=== PATIENT | female | born 1945 ===

== ENCOUNTER 2016-10-03 22:37 | Emergency (ER) | payer OTHER ==
--- NOTE | 2016-10-03 22:48 | PDOC ---
History of Present Illness - General Chief Complaint: Laceration Stated Complaint: S/P FALL HEAD LAC Time Seen by Provider: 10/03/16 22:47 History Source: Patient, Family Exam Limitations: No Limitations - History of Present Illness Initial Comments: 10/03/16 23:02 This is a 71-year-old female who has been fasting for . Patient before breaking her fast at the end of the day developed some dizziness and lost her balance hitting her head against a cabinet. Patient comes in with a laceration to her forehead. Patient said she did not pass out. Patient denies any chest pain, shortness of breath, headache, neck pain. Patient only complained of pain is in the area of the laceration. PAST MEDICAL HISTORY: no significant history PAST SURGICAL HISTORY: no significant history FAMILY HISTORY: no pertinant history SOCIAL HISTORY: Pt lives with family and is employed. MEDICATIONS: reviewed ALLERGIES: As per nursing notes Review of Systems General: No fevers or chills, no weakness, no weight loss HEENT: Forehead laceration, No change in vision. No sore throat,. No ear pain CardioVascular: No chest pain or shortness of breath Respiratory:No cough, or wheezing. Gastrointestinal: no nausea, vomitting, diarrhea or constipation, No rectal bleeding Genitourinary: No dysuria, hematuria, or frequency Musculoskeletal: No joint or muscle pain or swelling Neurologic: Dizziness, No headache, vertigo, no loss of consciousness Psychiatric: nor depression Skin: No rashes or easy bruising Endocrine: no increased thirst or abnormal weight change Allergic: no skin or latex allergy All other systems reviewed and normal Exam: General: Well-nourished well-developed individual, no acute distress HEAD: There is approximately 4 cm laceration mid forehead towards the upper forehead. There is no active bleeding laceration is superficial. HEENT: Throat: Normal, tonsils normal, no erythema or exudate Neck: Supple, no meningeal signs, no lymphadenopathy Eyes::Pupils equal reactive and round, extraocular motion intact Chest: Nontender to palpation Cardiac: S1-S2 normal, regular rate and rhythm, no murmurs rubs or gallops Respiratory: Lungs clear to auscultation bilateral Abdomen: Soft, nondistended, normal bowel sounds, nontender to palpation diffusely Extremities: Warm, dry, no cyanosis, clubbing, or edema Skin: No rashes Neuro: Alert and oriented x3, nonfocal exam, grossly intact, normal gait Psych: Normal mood and affect 10/03/16 23:18 Procedure note laceration repair Laceration was cleaned with peroxide and then closed with Dermabond patient tolerated well Past History - Past Medical History Allergies/Adverse Reactions: Allergies Allergy/AdvReac Type Severity Reaction Status Date / Time No Known Allergies Allergy Unverified 10/03/16 22:40 Home Medications: Ambulatory Orders Atorvastatin Ca [Lipitor] 10 mg PO HS 10/03/16 Levothyroxine Sodium [Synthroid] 88 mcg PO DAILY 10/03/16 ED Treatment Course - LABORATORY CBC & Chemistry Diagram: 10/03/16 22:49 10/03/16 22:49 *DC/Admit/Observation/Transfer Diagnosis at time of Disposition: Pre-syncope, Laceration of forehead - Discharge Dispostion Disposition: HOME Condition at time of disposition: Good Admit: No - Patient Instructions Printed Discharge Instructions: DI for Closed Head Injury, DI for Laceration Repair With Dermabond Additional Instructions: Tylenol or Motrin as needed for pain. Read over the Dermabond instructions were given. It is important that you do not put any petroleum based creams or ointments on the laceration is awoke THE glue to come off early. Also keep it dry for the next 48 hours and do not get a wet Someone should check on you once tonight during the night. You should be arousable to your Normal level of arousability for that time of the night. If you have been vomiting, have had a seizure, or you are unable to be aroused or the person checking on you is concerned that there has been a change in your mental status they should call 911 and have you brought back to the emergency department. You can take Tylenol as needed for pain. Return to the emergency department immediately with ANY new, persistent or worsening symptoms. Continue any medications as previously prescribed by your physician. You should follow up with your primary doctor as soon as possible regarding today's emergency department visit. . Please make sure your doctor reviews the results of your emergency evaluation. Thank you for coming to the Emergency Department today for your care. It was a pleasure to see you today. Please note that your evaluation is INCOMPLETE until you follow-up with your doctor.
[2016-10-03 22:49] VITALS: BP 151/76; PULSE 79; TEMP 97.7; BMI 42.9
[2016-10-03] MEDS ORDERED: ACETAMINOPHEN 500 MG TABLET (FP) PO ONE (23:03)
[2016-10-03] MEDS ORDERED: ACETAMINOPHEN 325 MG TABLET (FP) ONE (23:06)
[2016-10-03 23:20] LABS: BASOPHIL 3.1 % (0-2.0); EOSINOPHIL 2.3 % (0-4.5); MCH 29.7 pg (25.7-33.7); MCHC 33.3 g/dl (32.0-36.0); MEAN PLT VOLUME 7.9 fl (7.5-11.1); NEUTROPHILS 60.4 % (42.8-82.8); PLATELET COUNT 242 K/MM3 (134-434); RDW 11.9 % (11.6-15.6); WHITE BLOOD COUNT 8.2 K/mm3 (4.0-10.8)
[2016-10-03 23:38] LABS: ALBUMIN 3.9 g/dl (3.5-5.0); ALK PHOS 69 U/L (32-92); ANION GAP 8 (8-16); BILIRUBIN,TOTAL 0.4 mg/dl (0.2-1.0); CALCIUM 9.2 mg/dl (8.4-10.2); CO2 27 mmol/L (22-28); COCKROFT - GAULT 118.8045; CREATININE 0.8 mg/dl (0.6-1.3); GLUCOSE,RANDOM 182 mg/dl (74-106); SGOT/AST 21 U/L (10-42); SGPT/ALT 25 U/L (10-40); TOT PROT 6.9 g/dl (6.4-8.3)
[2016-10-03 23:39] LABS: CPK(DFH) 179 IU/L (26-140)
[2016-10-03 23:47] LABS: TROPONIN I (DFP) < 0.03 ng/ml (0.03-0.50)
--- NOTE | 2016-10-04 07:53 | EKG ---
Test Reason : Blood Pressure : / mmHG Vent. Rate : 070 BPM Atrial Rate : 070 BPM P-R Int : 098 ms QRS Dur : 080 ms QT Int : 392 ms P-R-T Axes : 000 014 007 degrees QTc Int : 423 ms SINUS RHYTHM WITH SHORT OR OTHERWISE NORMAL ECG NO PREVIOUS ECGS AVAILABLE Confirmed by CRYSTAL CARPIO MD ([id number] on 10/04/2016 7:53:24 AM Referred By: MD SANFORD Confirmed By:CRYSTAL CARPIO MD
== END 2016-10-04 00:41 | disposition home or self-care (01) ==
LOC: FER 22:37
PROC: 0HQ1XZZ Repair Face Skin, External Approach (ICD-10-PCS; principal; 2016-10-03)
DX: S01.81XA Laceration without foreign body of other part of head, initial encounter (principal); R55 Syncope and collapse; W18.30XA Fall on same level, unspecified, initial encounter; Y93.89 Activity, other specified; Y92.9 Unspecified place or not applicable
CPT/HCPCS: 36415; 70450-TC; 80053; 82550; 82553; 84484; 85025; 93005; 99284-25